=== PATIENT | female | born 1990 | race Caucasian/White ===

== ENCOUNTER 2021-05-28 05:56 | Inpatient (IN) | payer BC ==
[2021-05-28] MEDS ORDERED: OXYTOCIN 10 UNIT/ML 1 ML VIAL IM PRN (06:10)
[2021-05-28] MEDS ORDERED: TERBUTALINE 1 MG/ML VIAL SQ PRN (06:10)
[2021-05-28] MEDS ORDERED: CARBOPROST TROMETHAMINE 250 MCG/ML 1 ML AMP IM PRN (06:10)
[2021-05-28] MEDS ORDERED: LIDOCAINE 0.5% (PF) 5 MG/ML (50 ML SDV) SQ PRN (06:10)
[2021-05-28] MEDS ORDERED: METHYLERGONOVINE 0.2 MG/ML 1 ML AMP IM PRN (06:10)
[2021-05-28] MEDS ORDERED: OXYTOCIN 30 UNITS/500 ML NS 30 UNIT in SALINE 1 500ML.BAG IV SCH (06:15)
[2021-05-28] MEDS: LACTATED RINGERS 1,000 ML IV SCH ×2 (06:17→17:51)
[2021-05-28 06:26] LABS: Basophils % (A) 0 %; Eosinophils # (A) 0.2 k/uL (0-0.7); Eosinophils % (A) 1 %; HCT 39.4 % (34.0-46.0); HGB 13.8 gm/dL (11.4-16.0); Lymphocytes # (A) 1.2 k/uL (1.0-4.8); Lymphocytes % (A) 10 %; MCH 33.4 pg (25.0-35.0); MCHC 35.1 g/dL (31.0-37.0); MCV 95.1 fL (80.0-100.0); Mean Platelet Volume 9.1; Monocytes # (A) 0.8 k/uL (0-1.0); Monocytes % (A) 6 %; Neutrophils # (A) 9.7 k/uL (1.3-7.7); Neutrophils % (A) 81 %; Platelet Count 175 k/uL (150-450); RBC 4.14 m/uL (3.80-5.40); RDW 12.8 % (11.5-15.5)
--- NOTE | 2021-05-28 06:59 | P.HPOB ---
History of Present Illness H&P Date: 05/28/21 Chief Complaint: Here for induction of labor with favorable cervix. This is a 31-year-old female 1 para 0 EDC 06/04/2021 at 39 weeks gestation who presents for induction of labor with favorable cervix. She did have cramping through the night. Fetus is been active throughout the . Past medical history is significant for migraine headaches. Past surgical history Lasix eye surgery. Current medications vitamins daily, baby aspirin daily. ALLERGIES amoxicillin to which reports a full body rash. Family history is unremarkable. Social history patient has never been a smoker, she denies alcohol or drug use, she is , her is present. She is an php engineer. history significant for blood type O+, rubella status immune. Group B strep cultures, hepatitis B surface antigen, VDRL testing, urine culture, HIV testing, gonorrhea and chlamydia cultures all negative. Blood type is O+. One- hour Glucola elevated, 3 hour GTT within normal limits. On exam patient is 5 foot 5 inches, 188 pounds, blood pressure 127/83. General physical exam is within normal limits. Cervix is 3-4 cm dilated, 70% effaced, - 2 station, vertex presentation. Artificial amniorrhexis reveals light meconium- stained fluid. heart rate is consistent with reactive NST. Impression: 39 week intrauterine , light meconium-stained fluid, all signs reassuring, here for elective induction of labor. Plan: Oxytocin per hospital protocol. Analgesic options reviewed. Anticipate normal spontaneous vaginal delivery. Review of Systems Constitutional: Reports as per HPI Past Medical History Additional Past Medical History / Comment(s): Migraines History of Any Multi-Drug Resistant Organisms: None Reported Additional Past Surgical History / Comment(s): Eye surgery Past Anesthesia/Blood Transfusion Reactions: No Reported Reaction Past Psychological History: No Psychological Hx Reported Smoking Status: Never smoker Past Alcohol Use History: None Reported Past Drug Use History: None Reported - Past Family History Mother Family Medical History: No Reported History Medications and Allergies Home Medications Medication Instructions Recorded Confirmed Type Aspirin [Adult Low Dose Aspirin EC] 81 mg PO DAILY 05/28/21 05/28/21 History Pnv No.95/Ferrous Fum/Folic AC 1 tab PO DAILY 05/28/21 05/28/21 History [ Multivitamin Tablet] Allergies Allergy/AdvReac Type Severity Reaction Status Date / Time amoxicillin Allergy Rash/Hives Verified 05/28/21 06:09 Exam Vital Signs Temp Pulse Resp BP 05/28/21 06:08 97.6 F 82 16 127/83 Intake and Output 05/27/21 05/27/21 05/28/21 14:59 22:59 06:59 Other: Weight 85.275 kg See dictation under HPI please Results Result Diagrams: 05/28/21 06:15 Abnormal Lab Results - Last 24 Hours (Table) 05/28/21 Range/Units 06:15 WBC 12.0 H (3.8-10.6) k/uL Neutrophils # 9.7 H (1.3-7.7) k/uL Assessment and Plan Assessment: 39 weeks intrauterine , light meconium-stained fluid, here for induction of labor, all signs reassuring. Plan: Oxytocin per hospital protocol. Close maternal and surveillance. Analgesic options reviewed. Anticipate normal spontaneous vaginal delivery. Time with Patient: Less than 30
[2021-05-28] MEDS ORDERED: fentaNYL (PF) 50 MCG/ML 5 ML AMP ONE (10:49)
[2021-05-28] MEDS ORDERED: ROPIVACAINE 5MG/ML 20ML VIAL ONE (10:49)
[2021-05-28] MEDS ORDERED: SODIUM CHLORIDE 0.9% 100 ML BAG ONE (10:49)
[2021-05-28] MEDS ORDERED: diphenhydrAMINE 25 MG CAP PO PRN (13:46)
[2021-05-28] MEDS ORDERED: HYDROCORTISONE 2.5% RECTAL CREAM 30 GM TUBE RECTAL PRN (13:46)
[2021-05-28] MEDS ORDERED: BENZOCAINE/MENTHOL SPRAY 1 GM/SPRAY AEROSOL TOPICAL PRN (13:46)
[2021-05-28] MEDS ORDERED: diphenhydrAMINE 50 MG CAP PO PRN (13:46)
[2021-05-28] MEDS ORDERED: diphenhydrAMINE 50 MG/ML 1 ML VIAL IVP PRN ×2 (13:46)
[2021-05-28] MEDS ORDERED: ZOLPIDEM 5 MG TAB PO PRN (13:46)
[2021-05-28] MEDS ORDERED: LANOLIN CREAM 5 GM TUBE TOPICAL PRN (13:46)
[2021-05-28] MEDS ORDERED: SIMETHICONE 80 MG CHEWABLE PO PRN (13:46)
--- NOTE | 2021-05-28 13:46 | P.PROBDLV ---
Vaginal Delivery Note - . Vaginal Delivery Note: This is a 31-year-old female 1 para 0 EDC 06/04/2021 at 39 weeks gestation who presented for induction with favorable cervix. Fetus is been active throughout the . Artificial amniorrhexis revealed light meconium-stained fluid. Group B strep cultures negative, blood type O positive, rubella status immune. Please see dictated history and physical for details. Oxytocin was started and titrated per hospital protocol. Epidural was placed per her request. She progressed well through the first stage of labor and became complete. She began the second stage of labor at that time. Excellent maternal expulsive efforts were noted. In under 30 minutes was . Perineal body was prepped and draped in usual sterile fashion. 's head delivered occiput anterior and he restituted accordingly. There was a nuchal cord 1 that was reduced. The right or anterior shoulder was easily delivered from underneath the pubic symphysis at which time the oropharynx, nasopharynx, and external nares were all bulb suctioned. Patient was officially delivered of a liveborn male at 1329 hours. Umbilical cord was doubly clamped and ligated, he was handed to waiting nurses for evaluation where scores of 9 and 9 at one and 5 minutes respectively were given. weighs 7 lbs. 9 oz. or 3415 g. The placenta delivered spontaneously with active management, it was inspected and noted to be intact with trivascular cord. Uterus is massaged. Careful inspection of the cervix, vagina, perineum, periurethral, and perirectal areas revealed a small second-degree perineal laceration. This is repaired in the usual fashion using repeat suture. Excellent reapproximation was noted. Fundus is firm and in the midline, symmetric and 18 week size upon completion of delivery. Patient and her are requesting circumcision further son.
[2021-05-28] MEDS: IBUPROFEN 600 MG TAB PO PRN (15:45)
[2021-05-28] MEDS ORDERED: ACETAMINOPHEN TAB 325 MG TAB PO PRN (20:01)
[2021-05-28] MEDS: SENNOSIDES-DOCUSATE SODIUM 1 EACH TAB PO SCH (20:12)
[2021-05-29] MEDS: IBUPROFEN 600 MG TAB PO PRN ×4 (04:17→20:25)
[2021-05-29 07:15] LABS: Basophils % (A) 0 %; Eosinophils # (A) 0.1 k/uL (0-0.7); Eosinophils % (A) 1 %; HCT 36.7 % (34.0-46.0); HGB 12.5 gm/dL (11.4-16.0); Lymphocytes % (A) 7 %; MCH 32.9 pg (25.0-35.0); MCV 96.7 fL (80.0-100.0); Mean Platelet Volume 9.8; Monocytes # (A) 0.9 k/uL (0-1.0); Monocytes % (A) 6 %; Neutrophils # (A) 12.5 k/uL (1.3-7.7); Neutrophils % (A) 85 %; Platelet Count 157 k/uL (150-450); RDW 12.8 % (11.5-15.5); WBC 14.7 k/uL (3.8-10.6)
--- NOTE | 2021-05-29 08:08 | P.DS ---
Providers Date of admission: 05/28/21 05:56 Expected date of discharge: 05/29/21 Attending physician: Arelis Lopez Primary care physician: Stated None Hospital Course: This is a 31-year-old female 1 para 0 EDC 06/04/2021 who presented at 39 weeks gestation with a favorable cervix for induction of labor. is remarkable for negative group B strep cultures, rubella status immune, blood type O positive. Please see dictated history and physical for details. Artificial amniorrhexis revealed light meconium-stained fluid. Oxytocin was started and titrated, epidural placed. Patient went on to rather swiftly deliver a liveborn male infant with scores of 9 and 9 at one and 5 minutes respectively. There was a nuchal cord 1 that was reduced, a small second- degree perineal laceration easily repaired. His weight 7 lbs. 9 oz. or 3415 g. Please see dictated delivery note for details. This morning the patient is doing well. She is voiding, ambulating, passing flatus without difficulty. Vital signs are stable and she is afebrile. Fundus is firm and in the midline, symmetric and 18 week size. Extremities are negative for edema. Randolph is doing well, circumcision has been performed. Patient is judged to be in very good condition for discharge home. She will follow-up with me in the office in 6 weeks. I have reminded her no intercourse, tampons or douching. She will use [id number] Advil or Aleve, or Motrin as needed for pain. She will call with any fevers shakes or chills, foul smelling or copious lochia, with the passage of large blood clots, with any pain not alleviated by [id number] products, or indeed with any concerns. We have briefly discussed contraceptive options and we will discuss this further in the office. Assessment: Doing well day #1 Patient Condition at Discharge: Good Plan - Discharge Summary Discharge Rx Participant: No New Discharge Prescriptions: No Action Pnv No.95/Ferrous Fum/Folic AC [ Multivitamin Tablet] 1 tab PO DAILY Aspirin [Adult Low Dose Aspirin EC] 81 mg PO DAILY Discharge Medication List Aspirin [Adult Low Dose Aspirin EC] 81 mg PO DAILY 05/28/21 [History] Pnv No.95/Ferrous Fum/Folic AC [ Multivitamin Tablet] 1 tab PO DAILY 05/28/21 [History] Follow up Appointment(s)/Referral(s): Arelis Lopez MD [STAFF PHYSICIAN] - 6 Weeks Discharge Disposition: HOME SELF-CARE
[2021-05-29] MEDS: SENNOSIDES-DOCUSATE SODIUM 1 EACH TAB PO SCH ×2 (08:43→20:25)
[2021-05-30] MEDS: IBUPROFEN 600 MG TAB PO PRN ×2 (02:25→08:37)
[2021-05-30] MEDS: SENNOSIDES-DOCUSATE SODIUM 1 EACH TAB PO SCH (08:37)
[2021-05-30 09:09] VITALS: BP 125/79; PULSE 55; RESP 16; TEMP 98.2
== END 2021-05-30 11:50 | disposition home or self-care (01) | DRG 807 ==
LOC: 4FBP 05:56
PROVIDERS: ADMIT Obstetrics & Gynecology; ATTEND Obstetrics & Gynecology
PROC: 10E0XZZ Delivery of Products of Conception, External Approach (ICD-10-PCS; principal; 2021-05-28)
PROC: 0KQM0ZZ Repair Perineum Muscle, Open Approach (ICD-10-PCS; 2021-05-28)
DX: O69.81X0 Labor and delivery complicated by cord around neck, without compression, not applicable or unspecified (principal); Z37.0 Single live birth; O70.1 Second degree perineal laceration during delivery; O77.0 Labor and delivery complicated by meconium in amniotic fluid; Z3A.39 39 weeks gestation of pregnancy; Z88.0 Allergy status to penicillin; Z79.82 Long term (current) use of aspirin
CPT/HCPCS: 85025; 86850; 86900; 86901